=== PATIENT | female | born 1980 | race Two or more races ===

== ENCOUNTER 2019-02-27 05:41 | Day surgery (SDC) | payer OTHER ==
[~2019-02-27] VITALS: Ht 167.6 cm; Wt 63.5 kg
[2019-02-27] VITALS (10 sets, daily range): BP systolic 95–121; BP diastolic 63–84
[~2019-02-27 05:41] MED LIST: ADDERAL20 MG ORAL; XANAX0.5 MG ORAL
[2019-02-27] MEDS ORDERED: oxyCONTIN 20mg tab ORAL ONE (06:00)
[2019-02-27] MEDS ORDERED: ceFAZolin 1gm IVPB IVPB ONE ×2 (06:00)
[2019-02-27] MEDS ORDERED: celeBREX 200mg Cap **SURGERY PATIENTS ONLY ORAL ONE (06:00)
[2019-02-27] MEDS ORDERED: LR 1000ml 1,000 ML IVLG SCH (07:08)
--- NOTE | 2019-02-27 07:08 | Anethesia Preoperative Eval ---
Anesthesia Pre-op PMH/ROS General Date of Evaluation: February 27, 2019 Anesthesiologist: Markel ASA Score: ASA 2 Mallampati Score Class I : Soft palate, uvula, fauces, pillars visible Class II: Soft palate, uvula, fauces visible Class III: Soft palate, base of uvula visible Class IV: Only hard plate visible Mallampati Classification: Class I Surgeon: Chris Diagnosis: Left knee hardware Surgical Procedure: Removal of left knee hardware Anesthesia History: none Social History: drug use - marijuana-last use 2 days ago, mushrooms-last use 5 days ago Family History: no anesthesia problems Allergies: Coded Allergies: No Known Allergies (Unverified , 02/26/19) Medications: see eMAR Patient NPO?: Yes NPO Date: February 26, 2019 NPO Time: 22:00 Past Medical History Cardiovascular: Denies: HTN, CAD, NV, valve dz, arrhythmia, other Pulmonary: Denies: asthma, COPD, MELVIN, other Gastrointestinal/Genitourinary: Denies: GERD, CRI, ESRD, other Neurologic/Psychiatric: Reports: depression/anxiety; Denies: dementia, CVA, TIA, other Endocrine: Denies: DM, hypothyroidism, steroids, other HEENT: Denies: cataract (L), cataract (R), glaucoma, NIKOLAI (L), NIKOLAI (R), other Hematology/Immune: Denies: anemia, DVT, bleeding disorder, other Musculoskeletal/Integumentary: Denies: OA, RA, DJD, DDD, edema, other PSxH Narrative: septoplasty, breast augmentation, left knee surgery Anesthesia Pre-op Phys. Exam Physician Exam Last Vital Signs Date Time Temp Pulse Resp B/P (MAP) Pulse Ox O2 Delivery O2 Flow Rate FiO2 02/27/19 06:17 Room Air 02/27/19 06:11 97.4 82 18 104/71 99 Constitutional: NAD Cardiovascular: RRR Respiratory: CTA Airway Exam Mallampati Score: Class I MO: full ROM: full Teeth: intact Anesthesia Pre-op A/P Labs see chart Urine Test Test 02/27/19 05:50 Urine HCG, Qualitative Negative (NEGATIVE) Risk Assessment & Plan Assessment: ASA II Plan: GA Status Change Before Surgery: No Pre-Antibiotics Drug: Ancef 1g Given Within 1 Hr of Incision: Yes Destinee Gray MD February 27, 2019 07:08
[2019-02-27] MEDS ORDERED: fentaNYL 100 mcg/2 mL IV PRN (07:15)
[2019-02-27] MEDS ORDERED: Hydromorphone 0.5mg/0.5ml inj IVP PRN (07:15)
[2019-02-27] MEDS ORDERED: Ketorolac 30mg Inj IV PRN (07:15)
[2019-02-27] MEDS ORDERED: Metoclopramide 10mg/2ml Inj IVP PRN (07:15)
[2019-02-27] MEDS ORDERED: Midazolam 2mg/2ml Inj IVP PRN (07:15)
[2019-02-27] MEDS ORDERED: LORazepam Inj 2mg/ml 1ml IV PRN (07:15)
[2019-02-27] MEDS ORDERED: DiphenhydrAMINE 50mg/ml Inj IVP PRN (07:15)
[2019-02-27] MEDS ORDERED: Zemuron 50mg/5ml Inj IV ONE (07:18)
[2019-02-27] MEDS ORDERED: Sugammadex Sodium 200mg/2ml vial IV ONE (07:18)
[2019-02-27] MEDS ORDERED: Lidocaine 1% MPF 10mg/ml 5ml ONE (07:19)
[2019-02-27] MEDS ORDERED: Propofol 200mg/20ml IV ONE (07:19)
[2019-02-27] MEDS ORDERED: Dexamethasone 4mg/ml vial ONE (07:21)
[2019-02-27] MEDS ORDERED: Sterile Water Irrig 1000ml IRRIG ONE (07:30)
[2019-02-27] MEDS ORDERED: NS Irrig 1000ml ONE (07:30)
[2019-02-27] MEDS ORDERED: LR 1000ml ONE (07:30)
--- NOTE | 2019-02-27 07:36 | Operative Note - PDOC ---
Operative Note Operative Note Pre-op Diagnosis: left finger ganglion cyst and left knee painful hardware Procedure: see op report Post-op Diagnosis: same as pre-op plus Operative Findings: consistent w/pre-op dx studies Anesthesia: regional Specimen: none Complications: none Condition: stable Estimated Blood Loss: none Implant(s) used?: No Benny Perez MD February 27, 2019 07:36
--- NOTE | 2019-02-27 07:36 | Pre-Procedure Note/Attestation ---
Pre-Procedure Note/Attestation Complete Prior to Procedure Planned Procedure: left Procedure Narrative: excision finger mass and removal hardware left knee Indications for Procedure Pre-Operative Diagnosis: left finger ganglion cyst and left knee painful hardware Attestation I attest that I discussed the nature of the procedure; its benefits; risks and complications; and alternatives (and the risks and benefits of such alternatives ), prior to the procedure, with the patient (or the patient's legal automobile rental representative). I attest that, if there was a reasonable possibility of needing a blood transfusion, the patient (or the patient's legal automobile rental representative) was given the [facility] standardized written summary, pursuant to the [place] Blood Safety Act ([place] Health and Safety Code # 1645, as amended). I attest that I re-evaluated the patient just prior to the surgery and that there has been no change in the patient's H&P, except as documented below: Benny Perez MD February 27, 2019 07:36
[2019-02-27] MEDS ORDERED: Tylenol #3 tab (300mg/30mg) ORAL PRN (07:45)
[2019-02-27] MEDS ORDERED: HYDROcodone/Acetamin 5/325 tab ORAL PRN (07:45)
[2019-02-27] MEDS ORDERED: D5 1/2NS 1,000 ML IV SCH (07:45)
[2019-02-27] MEDS ORDERED: HYDROmorphone 1mg/ml Carpuject SUBQ PRN (07:45)
--- NOTE | 2019-02-27 10:08 | Immediate Post-Op Evaluation ---
Immediate Post-Op Evalulation Immediate Post-Op Evalulation Procedure: Left knee hardware removal and left middle finger mass excision Date of Evaluation: February 27, 2019 Pain Score (1-10): 0 Nausea: No Vomiting: No Complications 0 Patient Status: awake, reacts, patent, none Hydration Status: adequate Drug: Ancef 1g Given Within 1 Hr of Incision: Yes Destinee Gray MD February 27, 2019 10:08
--- NOTE | 2019-02-27 10:09 | 48 Hour Post Anesthesia Eval ---
Post Anesthesia Evaluation Procedure: Left knee hardware removal and left middle finger mass excision Date of Evaluation: February 27, 2019 Airway: patent Nausea: No Vomiting: No Pain Intensity: 0 Hydration Status: adequate Cardiopulmonary Status: at baseline Mental Status/LOC: patient returned to baseline Post-Anesthesia Complications: 0 Follow-up care needed: ready to discharge Destinee Gray MD February 27, 2019 10:09
--- NOTE | 2019-02-27 14:45 | Operative Note - Dictated ---
DATE OF OPERATION: 02/27/2019 PREOPERATIVE DIAGNOSES: 1. Left ring DIP joint traumatic ganglion cyst. 2. Left knee painful hardware. POSTOPERATIVE DIAGNOSES: 1. Left ring DIP joint traumatic ganglion cyst. 2. Left knee painful hardware. PROCEDURE: 1. Removal of buried screws x2. 2. Excision of left ring finger DIP ganglion cyst. SURGEON: Benny Perez M.D. ANESTHESIA: General. INDICATION: The patient is a pleasant female, who has had underwent open reduction and internal fixation of the patella fracture. The patient subsequently had continued pain, elected to undergo removal of the hardware, and there was question of possible metal sensitivity as well. For the left hand she had this persistent mass since the accident that was continued to be symptomatic with activities. Given that, it did not get better with conservative treatment, she elected to undergo excision of the cyst comfortably. Risks, limitations, expectations, and complications of the procedure were discussed in detail. All questions addressed. DESCRIPTION OF PROCEDURE: After informed consent was obtained, the patient was brought to the operating room. The patient was placed under general anesthesia. Left leg was prepped and draped in a sterile manner. Time-out was performed. Ancef was administered. A standard anterior skin incision was made. Medial retinaculum was peeled off the inferior medial border of the patella, screws were identified and removed. The wound was copiously irrigated. The retinaculum was reapproximated. The skin was approximated using 2-0 Vicryl suture and 3-0 Monocryl suture. Dermabond dressing was applied. Attention turned to the left hand. A transverse incision along the DIP joint was performed. The ganglion cyst was identified and removed in its entirety. The wound was copiously irrigated. Skin was closed using nylon sutures. Compression dressing was applied. The patient was awoken and taken to recovery room with stable vital signs. ESTIMATED BLOOD LOSS: None. COMPLICATIONS: None. SPECIMENS: None. IMPLANTS: None. Benny Perez M.D. DR: SARIAH JOB#: [id number] CC: BONNIE
== END 2019-02-27 11:30 | disposition home or self-care (01) ==
LOC: SUR 05:41
DX: M67.442 Ganglion, left hand (principal); T85.848A Pain due to other internal prosthetic devices, implants and grafts, initial encounter; X58.XXXA Exposure to other specified factors, initial encounter; Y92.9 Unspecified place or not applicable; F32.9 Major depressive disorder, single episode, unspecified; F41.9 Anxiety disorder, unspecified
CPT/HCPCS: 26160; 26320; 81025; J0690; J1100; J1885; J2250; J2405; J2704; J2765; J3010; 94003; 94150